=== PATIENT | female | born 1970 | race Two or more races ===

== ENCOUNTER 2019-11-08 10:30 | Inpatient (IN) | payer OTHER ==
[~2019-11-08] VITALS: Ht 157.5 cm; Wt 63.5 kg
[2020-01-27] MEDS ORDERED: IRON1TAB4 PO (07:55)
[2020-01-30] MEDS ORDERED: Tylenol #3 PO (10:59)
== END 2020-01-30 11:38 | disposition home or self-care (01) | DRG 743 ==
LOC: O/R 11-11 10:30 → SURH 01-27 08:45 → OB/GYN 01-27 11:20
PROVIDERS: ADMIT Obstetrics & Gynecology; ATTEND Obstetrics & Gynecology
PROC: 0UT70ZZ Resection of Bilateral Fallopian Tubes, Open Approach (ICD-10-PCS; 2020-01-27)
PROC: 0TJB8ZZ Inspection of Bladder, Via Natural or Artificial Opening Endoscopic (ICD-10-PCS; 2020-01-27)
PROC: 0UT90ZZ Resection of Uterus, Open Approach (ICD-10-PCS; principal; 2020-01-27 08:45)
DX: D25.1 Intramural leiomyoma of uterus (principal); D25.0 Submucous leiomyoma of uterus; D25.2 Subserosal leiomyoma of uterus; N92.1 Excessive and frequent menstruation with irregular cycle; N72 Inflammatory disease of cervix uteri